=== PATIENT | female | born 1940 | race Caucasian/White ===

== ENCOUNTER 2016-07-11 09:19 | Emergency (ER) | payer MEDICARE ==
[2016-07-11] MEDS ORDERED: MORPHINE SULFATE 4 MG/ML SYRINGE ONE (10:10)
[2016-07-11] MEDS ORDERED: PROMETHAZINE HCL 25 MG/ML VIAL ONE (10:10)
[2016-07-11] MEDS ORDERED: KETOROLAC TROMETHAMINE 30 MG/ML 1 ML VIAL ONE (10:15)
--- NOTE | 2016-07-11 11:02 | US ---
LEFT LOWER EXTREMITY VENOUS ULTRASOUND HISTORY: Left lower extremity pain and swelling status post spine injection 07/08/2016. Sonography of the left lower extremity was performed, with a focus on the venous structures. FINDINGS: COMMON FEMORAL VEIN: Patent and compressible. SUPERFICIAL FEMORAL VEIN: Patent and compressible. POPLITEAL VEIN: Patent and compressible. PROXIMAL CALF VEINS: Patent and compressible. RESPIRATORY AUGMENTATION OF FLOW: Present. ABNORMAL FLUID COLLECTIONS: None identified. IMPRESSION: No sonographic evidence of left lower extremity deep venous thrombosis. Results were electronically transmitted to the electronic medical record at 07/11/2016 at 1058 hours.
--- NOTE | 2016-07-11 11:56 | RAD ---
LEFT KNEE 4 VIEWS HISTORY: Increasing left knee pain. Frontal, lateral, and bilateral oblique views of the left knee. COMPARISON: 01/06/2012. ALIGNMENT: Grossly unremarkable.. JOINT SPACES: Moderately severe narrowing at the medial compartment, seen previously. JOINT EFFUSION: None identified. CALCIFICATIONS: Dystrophic calcifications along the lateral femoral condyle. FRACTURE: No displaced acute fracture. IMPRESSION: No malalignment or displaced acute fracture. 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
== END 2016-07-11 11:34 | disposition home or self-care (01) ==
LOC: ED 09:19
DX: M25.562 Pain in left knee (principal); M79.662 Pain in left lower leg